=== PATIENT | female | born 1985 | race African-American/Black ===

== ENCOUNTER → 2020-10-22 | Emergency (ER) | payer OTHER ==
[~2020-10-22] VITALS: Ht 170.2 cm; Wt 74.8 kg
[~2020-10-22] MED LIST: ELIQUIS; FOLIC ACID1 MG; HIERRO; VITAMIN B-121000 MC4
== END | disposition left against medical advice (07) ==
LOC: ER 18:14
DX: Z53.20 Procedure and treatment not carried out because of patient's decision for unspecified reasons (principal)